=== PATIENT | male | born 1995 | race Caucasian/White ===

== ENCOUNTER 2022-04-24 23:34 | Emergency (ER) | payer MEDICAID ==
[~2022-04-24] VITALS: Ht 170.2 cm; Wt 72.7 kg
[~2022-04-24 23:34] MED LIST: BUSP15TA8 PO; OLAN-1 PO; OLAN20TA3 PO
[2022-04-24 23:36] VITALS: BP 123/83
--- NOTE | 2022-04-25 01:35 | NUR ---
Patient placed on monitoring several times. Patient has removed. At a minimum patient was placed on spo2 monitor sticker. Patient seems to be tolerating this and has allowed this to remain in place.
--- NOTE | 2022-04-25 02:20 | NUR ---
Patient asleep at this time. PAtient spo2 remains greater than 95 percent, HR 70-80s.
[2022-04-25] MEDS ORDERED: ondansetron 4mg rapidly disintigrating tab PO ONE (03:20)
== END 2022-04-25 03:29 | disposition home or self-care (01) ==
LOC: ER 23:35
DX: T40.411A Poisoning by fentanyl or fentanyl analogs, accidental (unintentional), initial encounter (principal); Z72.89 Other problems related to lifestyle; Z60.2 Problems related to living alone; Z59.00 Homelessness unspecified; Z56.0 Unemployment, unspecified; Z79.899 Other long term (current) drug therapy; Y92.89 Other specified places as the place of occurrence of the external cause
CPT/HCPCS: 99283

== ENCOUNTER 2022-10-11 21:01 | Emergency (ER) | payer MEDICAID ==
[~2022-10-11 21:01] MED LIST changes: -BUSP15TA8 PO; +NO HOME MEDS; -OLAN-1 PO; +OLAN10TA3 PO; -OLAN20TA3 PO
[2022-10-12] MEDS ORDERED: OLAN10TA73 PO (19:00)
== END 2022-10-11 23:04 | disposition left against medical advice (07) ==
LOC: ER 21:01
DX: F29 Unspecified psychosis not due to a substance or known physiological condition (principal); Z53.21 Procedure and treatment not carried out due to patient leaving prior to being seen by health care provider

== ENCOUNTER 2022-11-02 21:46 | Emergency (ER) | payer MEDICAID ==
[~2022-11-02] VITALS: Ht 175.3 cm; Wt 140.0 kg
[~2022-11-02 21:46] MED LIST changes: -NO HOME MEDS; -OLAN10TA3 PO; +OLAN10TA73 PO
[2022-11-02 22:05] VITALS: BP 136/85; PULSE 110; RESP 18; TEMP 98; O2SAT 97
== END 2022-11-03 00:04 | disposition left against medical advice (07) ==
LOC: ER 21:47
DX: R61 Generalized hyperhidrosis (principal); Z53.21 Procedure and treatment not carried out due to patient leaving prior to being seen by health care provider
CPT/HCPCS: 99281

== ENCOUNTER 2022-12-02 21:04 | Emergency (ER) | payer MEDICAID ==
[~2022-12-02] VITALS: Ht 170.2 cm; Wt 74.0 kg
[2022-12-02 22:25] VITALS: TEMP 97.4
[2022-12-03 02:10] VITALS: BP 101/65; PULSE 97; RESP 18; O2SAT 98
[2022-12-03] MEDS ORDERED: AMOX-117 PO (02:25)
== END 2022-12-03 02:32 | disposition home or self-care (01) ==
LOC: ER 21:05
DX: K08.89 Other specified disorders of teeth and supporting structures (principal); F20.9 Schizophrenia, unspecified; Z79.899 Other long term (current) drug therapy; F15.10 Other stimulant abuse, uncomplicated; Z59.00 Homelessness unspecified; Z56.0 Unemployment, unspecified
CPT/HCPCS: 99283

== ENCOUNTER 2022-12-31 01:19 | Emergency (ER) | payer MEDICAID ==
[~2022-12-31] VITALS: Ht 170.2 cm; Wt 75.0 kg
[2022-12-31 01:48] VITALS: BP 100/71; PULSE 117; RESP 16; TEMP 98.6; O2SAT 99
[2022-12-31] MEDS ORDERED: AMOX500C2 PO (03:20)
== END 2022-12-31 03:34 | disposition home or self-care (01) ==
LOC: ER 01:20
DX: J02.9 Acute pharyngitis, unspecified (principal); K02.9 Dental caries, unspecified; F15.90 Other stimulant use, unspecified, uncomplicated; Z79.2 Long term (current) use of antibiotics; Z79.899 Other long term (current) drug therapy
CPT/HCPCS: 99283

== ENCOUNTER 2023-03-19 16:31 | Emergency (ER) | payer MEDICAID ==
[~2023-03-19] VITALS: Ht 177.8 cm; Wt 73.0 kg
[2023-03-19] MEDS ORDERED: ondansetron 4mg rapidly disintigrating tab PO ONE (16:40)
[2023-03-19 16:46] VITALS: BP 115/68; PULSE 103; RESP 12; TEMP 97.6; O2SAT 96
== END 2023-03-19 17:01 | disposition left against medical advice (07) ==
LOC: ER 16:31
DX: F11.10 Opioid abuse, uncomplicated (principal); R11.2 Nausea with vomiting, unspecified; F20.9 Schizophrenia, unspecified
CPT/HCPCS: 99283

== ENCOUNTER 2023-03-29 18:49 | Emergency (ER) | payer MEDICAID ==
[~2023-03-29] VITALS: Ht 170.2 cm; Wt 72.7 kg
[2023-03-29 21:28] LABS: BASOPHILS # (AUTO) 0.2 X10'3 (0-0.2); BASOPHILS % (AUTO) 1.5 % (0-1); EOSINOPHILS # (AUTO) 0.1 X10'3 (0-0.9); EOSINOPHILS % (AUTO) 0.8 % (0-6); HEMATOCRIT 40.8 % (42.0-52.0); HEMOGLOBIN 13.3 g/dl (14.0-17.9); LYMPHOCYTES % (AUTO) 8.7 % (21-51); MEAN CORPUSCULAR HGB CONC 32.7 g/dL (33.0-36.5); MEAN CORPUSCULAR VOLUME 88.6 FL (78-98); MEAN PLATELET VOLUME 7.5 FL (7.4-10.4); MONOCYTES # (AUTO) 0.7 X10'3 (0-0.9); NEUTROPHILS # (AUTO) 9.2 X10'3 (1.8-7.7); PLATELET COUNT 278 X10'3 (140-440); RED CELL DISTRIBUTION WIDTH 13.9 % (11.5-14.5)
[2023-03-29 21:43] LABS: ALANINE AMINOTRANSFERASE 24 U/L (12-78); ALBUMIN 3.1 G/DL (3.4-5.0); ALBUMIN/GLOBULIN RATIO 0.7 (1.1-1.5); ALKALINE PHOSPHATASE 61 IU/L (46-116); ANION GAP 7 (8-16); ASPARTATE AMINO TRANSFERASE 18 U/L (10-37); BILIRUBIN,TOTAL 0.3 MG/DL (0.1-1.0); BLOOD UREA NITROGEN 17 MG/DL (7-18); CALCIUM 8.8 MG/DL (8.5-10.1); CHLORIDE 100 MMOL/L (99-107); GLUCOSE 97 MG/DL (70-104); POTASSIUM 3.8 MMOL/L (3.5-5.1); SODIUM 139 MMOL/L (135-145); TOTAL CARBON DIOXIDE 31.7 MMOL/L (24-32); TOTAL PROTEIN 7.4 G/DL (6.4-8.2); eCRCL 104 ML/MIN; eGFR 90 ML/MIN
[2023-03-29 21:50] LABS: ETHANOL < 10 MG/DL (<10); LIPASE 29 U/L (16-77); PRO BRAIN NATRIURETIC PEPTIDE < 30 PG/ML (0-125)
[2023-03-29] MEDS ORDERED: acetaminophen 325mg tablet PO PRN (23:15)
[2023-03-30] MEDS: OLANZapine 5mg rapidly disint. tablet PO SCH ×2 (08:43→21:16)
[2023-03-30 09:34] LABS: BILIRUBIN,URINE NEGATIVE (Neg); CLARITY,URINE SLIGHTLY CLOUDY (Clear); COLOR,URINE YELLOW (Yellow); GLUCOSE, URINE NEGATIVE (Neg); KETONES,URINE NEGATIVE (Neg); LEUKOCYTE ESTERASE ,URINE NEGATIVE (Neg); NITRITES, URINE NEGATIVE (Neg); OCCULT BLOOD,URINE NEGATIVE (Neg); PROTEIN,URINE NEGATIVE (Neg); UROBILINOGEN,URINE 0.2 E.U/dL (0.2-1.0)
[2023-03-30 09:47] LABS: URINE AMPHETAMINE SCREEN POSITIVE (Neg); URINE BARBITUATE SCREEN NEGATIVE (Neg); URINE BENZODIAZEPINES SCREEN NEGATIVE (Neg); URINE CANNABINOID SCREEN NEGATIVE (Neg); URINE COCAINE SCREEN NEGATIVE (Neg); URINE METHADONE SCREEN NEGATIVE (Neg); URINE OPIATE SCREEN POSITIVE (Neg); URINE PHENCYCLIDINE SCREEN NEGATIVE (Neg)
[2023-03-30 09:48] LABS: UA COLLECTION TYPE NON-SPECIFIED
[2023-03-30 09:55] LABS: AMORPHOUS PHOSPHATES 1+; BACTERIA,URINE NONE SEEN /HPF (Neg); RBC,URINE 0-2 /HPF (0-2); SPERM FEW /HPF (NEGATIVE); SQUAMOUS EPITHELIAL CELL,UR NONE SEEN /LPF (FEW); WBC,URINE 0-4 /HPF (0-4)
[2023-03-31 07:47] VITALS: BP 103/69; PULSE 84; RESP 16; O2SAT 95
[2023-03-31 10:19] VITALS: TEMP 98.3
== END 2023-03-31 10:21 | disposition home or self-care (01) ==
LOC: ER 18:50
DX: T40.411A Poisoning by fentanyl or fentanyl analogs, accidental (unintentional), initial encounter (principal); Z59.00 Homelessness unspecified; F15.90 Other stimulant use, unspecified, uncomplicated; F20.9 Schizophrenia, unspecified; Z20.822 Contact with and (suspected) exposure to COVID-19; Y92.89 Other specified places as the place of occurrence of the external cause
CPT/HCPCS: 36415; 71045; 80053; 80305; 80320; 81001; 83690; 83735; 83880; 84484; 85025; 87811; 93005; 99285

== ENCOUNTER 2023-03-31 12:13 | Emergency (ER) | payer MEDICAID | END 2023-03-31 12:25 | disposition left against medical advice (07) | LOC: ER 12:14 | DX: Z00.8 Encounter for other general examination (principal); Z53.21 Procedure and treatment not carried out due to patient leaving prior to being seen by health care provider ==

== ENCOUNTER 2023-04-02 03:39 | Emergency (ER) | payer MEDICAID ==
[~2023-04-02] VITALS: Ht 170.2 cm; Wt 69.0 kg
[2023-04-02 03:40] VITALS: BP 118/62; PULSE 96; RESP 16; TEMP 98.4; O2SAT 98
== END 2023-04-02 04:48 | disposition home or self-care (01) ==
LOC: ER 03:40
DX: F15.10 Other stimulant abuse, uncomplicated (principal); Z00.8 Encounter for other general examination; F20.9 Schizophrenia, unspecified; Z79.899 Other long term (current) drug therapy
CPT/HCPCS: 99281

== ENCOUNTER 2023-04-15 06:39 | Emergency (ER) | payer MEDICAID ==
[~2023-04-15] VITALS: Ht 167.6 cm; Wt 67.5 kg
[2023-04-15 06:45] VITALS: BP 118/70; PULSE 106; RESP 16; TEMP 98.5; O2SAT 98
== END 2023-04-15 07:10 | disposition left against medical advice (07) ==
LOC: ER 06:39
DX: R05.9 Cough, unspecified (principal); Z53.21 Procedure and treatment not carried out due to patient leaving prior to being seen by health care provider
CPT/HCPCS: 99281

== ENCOUNTER 2023-04-17 16:41 | Emergency (ER) | payer MEDICAID ==
[~2023-04-17] VITALS: Ht 170.2 cm; Wt 72.7 kg
[2023-04-17 17:43] LABS: BASOPHILS # (AUTO) 0.1 X10'3 (0-0.2); BASOPHILS % (AUTO) 1.1 % (0-1); EOSINOPHILS # (AUTO) 0.3 X10'3 (0-0.9); EOSINOPHILS % (AUTO) 3.7 % (0-6); HEMATOCRIT 39.6 % (42.0-52.0); HEMOGLOBIN 13.3 g/dl (14.0-17.9); LYMPHOCYTES # (AUTO) 2.3 X10'3 (1.1-4.8); LYMPHOCYTES % (AUTO) 28.7 % (21-51); MEAN CORPUSCULAR HGB CONC 33.7 g/dL (33.0-36.5); MEAN CORPUSCULAR VOLUME 89.1 FL (78-98); MEAN PLATELET VOLUME 7.8 FL (7.4-10.4); MONOCYTES # (AUTO) 0.6 X10'3 (0-0.9); NEUTROPHILS # (AUTO) 4.7 X10'3 (1.8-7.7); NEUTROPHILS % (AUTO) 58.5 % (42-75); PLATELET COUNT 435 X10'3 (140-440); RED BLOOD COUNT 4.44 X10'6 (4.70-6.10); RED CELL DISTRIBUTION WIDTH 13.8 % (11.5-14.5); WHITE BLOOD COUNT 8.1 X10'3 (4.5-11.0)
[2023-04-17 17:51] LABS: ALBUMIN 3.2 G/DL (3.4-5.0); ANION GAP 7 (8-16); BLOOD UREA NITROGEN 28 MG/DL (7-18); BUN/CREATININE RATIO 34.6 (10.0-20.0); CHLORIDE 102 MMOL/L (99-107); CREATININE 0.81 MG/DL (0.60-1.10); ETHANOL < 10 MG/DL (<10); POTASSIUM 4.1 MMOL/L (3.5-5.1); SODIUM 141 MMOL/L (135-145); TOTAL CARBON DIOXIDE 31.8 MMOL/L (24-32); eCRCL 128 ML/MIN; eGFR > 90 ML/MIN
[2023-04-17 17:52] LABS: GLUCOSE 100 MG/DL (70-104)
[2023-04-17 18:17] LABS: URINE AMPHETAMINE SCREEN POSITIVE (Neg); URINE BARBITUATE SCREEN NEGATIVE (Neg); URINE BENZODIAZEPINES SCREEN NEGATIVE (Neg); URINE CANNABINOID SCREEN NEGATIVE (Neg); URINE COCAINE SCREEN NEGATIVE (Neg); URINE METHADONE SCREEN NEGATIVE (Neg); URINE OPIATE SCREEN NEGATIVE (Neg); URINE PHENCYCLIDINE SCREEN NEGATIVE (Neg)
[2023-04-17] MEDS ORDERED: NO HOME MEDS (18:24)
[2023-04-18 05:21] VITALS: BP 114/63; PULSE 97; TEMP 97.9; O2SAT 100
[2023-04-18 08:25] VITALS: RESP 16
== END 2023-04-18 15:17 | disposition home or self-care (01) ==
LOC: ER 16:41
DX: R45.851 Suicidal ideations (principal); Z20.822 Contact with and (suspected) exposure to COVID-19; R06.02 Shortness of breath; F15.90 Other stimulant use, unspecified, uncomplicated; Z79.899 Other long term (current) drug therapy
CPT/HCPCS: 36415; 71045; 80048; 80305; 80320; 85025; 87502; 87503; 87811; 99284

== ENCOUNTER 2023-04-20 12:51 | Emergency (ER) | payer MEDICAID ==
[~2023-04-20] VITALS: Ht 167.6 cm; Wt 56.8 kg
[~2023-04-20 12:51] MED LIST changes: +NO HOME MEDS; -OLAN10TA73 PO
== END 2023-04-20 13:18 | disposition left against medical advice (07) ==
LOC: ER 12:52
DX: Z76.5 Malingerer [conscious simulation] (principal); F15.90 Other stimulant use, unspecified, uncomplicated
CPT/HCPCS: 99283

== ENCOUNTER 2023-05-04 03:21 | Emergency (ER) | payer MEDICAID ==
[~2023-05-04] VITALS: Ht 177.8 cm; Wt 72.7 kg
[2023-05-04] MEDS: normal saline 1000ml 1,000 ML IV ONE (03:44)
[2023-05-04] MEDS: diphenhydrAMINE 50 mg/ml inj IV ONE (03:44)
[2023-05-04 03:50] LABS: BASOPHILS % (AUTO) 0.3 % (0-1); HEMOGLOBIN 13.2 g/dl (14.0-17.9)
[2023-05-04 03:51] LABS: EOSINOPHILS % (AUTO) 0.3 % (0-6); HEMATOCRIT 39.5 % (42.0-52.0); LYMPHOCYTES # (AUTO) 2.2 X10'3 (1.1-4.8); MEAN CORPUSCULAR HEMOGLOBIN 29.9 PG (27.0-31.0); MEAN CORPUSCULAR HGB CONC 33.4 g/dL (33.0-36.5); MEAN CORPUSCULAR VOLUME 89.6 FL (78-98); MEAN PLATELET VOLUME 7.8 FL (7.4-10.4); MONOCYTES # (AUTO) 0.9 X10'3 (0-0.9); MONOCYTES % (AUTO) 10.4 % (2-12); NEUTROPHILS # (AUTO) 5.1 X10'3 (1.8-7.7); PLATELET COUNT 309 X10'3 (140-440); RED BLOOD COUNT 4.41 X10'6 (4.70-6.10); RED CELL DISTRIBUTION WIDTH 14.2 % (11.5-14.5); WHITE BLOOD COUNT 8.3 X10'3 (4.5-11.0)
[2023-05-04 04:05] LABS: ALBUMIN 3.7 G/DL (3.4-5.0); ANION GAP 3 (8-16); BLOOD UREA NITROGEN 27 MG/DL (7-18); BUN/CREATININE RATIO 21.8 (10.0-20.0); CALCIUM 8.3 MG/DL (8.5-10.1); CHLORIDE 104 MMOL/L (99-107); CREATININE 1.24 MG/DL (0.60-1.10); GLUCOSE 167 MG/DL (70-104); SODIUM 142 MMOL/L (135-145); TOTAL CARBON DIOXIDE 34.7 MMOL/L (24-32); eCRCL 92 ML/MIN; eGFR 70 ML/MIN
[2023-05-04 04:06] LABS: POTASSIUM 3.8 MMOL/L (3.5-5.1)
[2023-05-04] MEDS: haloperidol lactate 5mg/ml inj IM ONE (04:06)
[2023-05-04 04:07] LABS: ETHANOL < 10 MG/DL (<10)
[2023-05-04 06:27] VITALS: BP 107/59; PULSE 84; RESP 12; TEMP 98; O2SAT 100
== END 2023-05-04 07:15 | disposition home or self-care (01) ==
LOC: ER 03:22
DX: T40.411A Poisoning by fentanyl or fentanyl analogs, accidental (unintentional), initial encounter (principal); R40.2A Nontraumatic coma due to underlying condition; F20.9 Schizophrenia, unspecified; Y92.89 Other specified places as the place of occurrence of the external cause
CPT/HCPCS: 71045; 80048; 80320; 84484; 85025; 93005; 96361; 96372; 96374; 99285; J1200; J1630; J7030

== ENCOUNTER 2023-05-04 08:33 | Emergency (ER) | payer MEDICAID ==
[2023-05-04 08:42] VITALS: BP 108/70; PULSE 64; RESP 18; O2SAT 100
[2023-05-04] MEDS: naloxone 2mg/2ml inj IV STA (09:09)
[2023-05-04] MEDS: normal saline 1000ml 1,000 ML IV ONE (09:09)
[2023-05-04 10:04] LABS: BASOPHILS # (AUTO) 0.1 X10'3 (0-0.2); BASOPHILS % (AUTO) 0.9 % (0-1); EOSINOPHILS % (AUTO) 0.2 % (0-6); HEMATOCRIT 35.6 % (42.0-52.0); HEMOGLOBIN 11.8 g/dl (14.0-17.9); LYMPHOCYTES % (AUTO) 25.1 % (21-51); MEAN CORPUSCULAR HEMOGLOBIN 29.7 PG (27.0-31.0); MEAN CORPUSCULAR HGB CONC 33.1 g/dL (33.0-36.5); MEAN CORPUSCULAR VOLUME 89.8 FL (78-98); MEAN PLATELET VOLUME 7.4 FL (7.4-10.4); MONOCYTES % (AUTO) 12.2 % (2-12); NEUTROPHILS # (AUTO) 4.8 X10'3 (1.8-7.7); NEUTROPHILS % (AUTO) 61.6 % (42-75); PLATELET COUNT 249 X10'3 (140-440); RED BLOOD COUNT 3.96 X10'6 (4.70-6.10); RED CELL DISTRIBUTION WIDTH 14.1 % (11.5-14.5); WHITE BLOOD COUNT 7.9 X10'3 (4.5-11.0)
[2023-05-04 10:19] LABS: ANION GAP 7 (8-16); BLOOD UREA NITROGEN 22 MG/DL (7-18); BUN/CREATININE RATIO 24.4 (10.0-20.0); CHLORIDE 108 MMOL/L (99-107); GLUCOSE 83 MG/DL (70-104); POTASSIUM 4.1 MMOL/L (3.5-5.1); SODIUM 142 MMOL/L (135-145); TOTAL CARBON DIOXIDE 27.1 MMOL/L (24-32); eGFR > 90 ML/MIN
[2023-05-04 11:04] LABS: ETHANOL < 10 MG/DL (<10)
== END 2023-05-04 11:02 | disposition home or self-care (01) ==
LOC: ER 08:33
DX: F15.10 Other stimulant abuse, uncomplicated (principal); F32.A Depression, unspecified; F20.9 Schizophrenia, unspecified; F11.10 Opioid abuse, uncomplicated; Z79.899 Other long term (current) drug therapy; Z59.00 Homelessness unspecified; Z56.0 Unemployment, unspecified
CPT/HCPCS: 36415; 80048; 80320; 85025; 96361; 96374; 99283; J2310; J7030

== ENCOUNTER 2023-06-25 11:24 | Emergency (ER) | payer MEDICAID ==
[~2023-06-25] VITALS: Ht 170.2 cm; Wt 86.0 kg
[2023-06-25 11:30] VITALS: TEMP 97.5
[2023-06-25 12:22] LABS: ALBUMIN 3.3 G/DL (3.4-5.0); ANION GAP 8 (8-16); BLOOD UREA NITROGEN 17 MG/DL (7-18); BUN/CREATININE RATIO 18.3 (10.0-20.0); CALCIUM 8.2 MG/DL (8.5-10.1); CHLORIDE 103 MMOL/L (99-107); CREATININE 0.93 MG/DL (0.60-1.10); GLUCOSE 201 MG/DL (70-104); POTASSIUM 3.3 MMOL/L (3.5-5.1); PRO BRAIN NATRIURETIC PEPTIDE 33 PG/ML (0-125); SODIUM 138 MMOL/L (135-145); TOTAL CARBON DIOXIDE 26.7 MMOL/L (24-32); eCRCL 112 ML/MIN; eGFR > 90 ML/MIN
[2023-06-25 12:26] LABS: BASOPHILS # (AUTO) 0.1 X10'3 (0-0.2); BASOPHILS % (AUTO) 0.9 % (0-1); EOSINOPHILS # (AUTO) 0.1 X10'3 (0-0.9); EOSINOPHILS % (AUTO) 1.6 % (0-6); HEMATOCRIT 42.5 % (42.0-52.0); HEMOGLOBIN 13.8 g/dl (14.0-17.9); LYMPHOCYTES # (AUTO) 2.4 X10'3 (1.1-4.8); LYMPHOCYTES % (AUTO) 34.2 % (21-51); MEAN CORPUSCULAR HEMOGLOBIN 29.1 PG (27.0-31.0); MEAN CORPUSCULAR HGB CONC 32.5 g/dL (33.0-36.5); MEAN CORPUSCULAR VOLUME 89.6 FL (78-98); MEAN PLATELET VOLUME 7.9 FL (7.4-10.4); MONOCYTES # (AUTO) 0.5 X10'3 (0-0.9); MONOCYTES % (AUTO) 6.4 % (2-12); NEUTROPHILS # (AUTO) 4.1 X10'3 (1.8-7.7); NEUTROPHILS % (AUTO) 56.9 % (42-75); PLATELET COUNT 302 X10'3 (140-440); RED BLOOD COUNT 4.74 X10'6 (4.70-6.10); RED CELL DISTRIBUTION WIDTH 13.8 % (11.5-14.5); WHITE BLOOD COUNT 7.1 X10'3 (4.5-11.0)
[2023-06-25 14:47] LABS: URINE AMPHETAMINE SCREEN NEGATIVE (Neg); URINE BARBITUATE SCREEN NEGATIVE (Neg); URINE BENZODIAZEPINES SCREEN NEGATIVE (Neg); URINE CANNABINOID SCREEN POSITIVE (Neg); URINE COCAINE SCREEN NEGATIVE (Neg); URINE METHADONE SCREEN NEGATIVE (Neg); URINE OPIATE SCREEN NEGATIVE (Neg); URINE PHENCYCLIDINE SCREEN NEGATIVE (Neg)
[2023-06-25 15:32] VITALS: BP 103/73; PULSE 77; RESP 18; O2SAT 99
== END 2023-06-25 15:37 | disposition home or self-care (01) ==
LOC: ER 11:25
DX: T40.412A Poisoning by fentanyl or fentanyl analogs, intentional self-harm, initial encounter (principal); F32.A Depression, unspecified; F20.9 Schizophrenia, unspecified; F15.90 Other stimulant use, unspecified, uncomplicated; F11.90 Opioid use, unspecified, uncomplicated; Z20.822 Contact with and (suspected) exposure to COVID-19; Z56.0 Unemployment, unspecified; Z59.00 Homelessness unspecified; Y92.89 Other specified places as the place of occurrence of the external cause
CPT/HCPCS: 36415; 71045; 80048; 80305; 80320; 83880; 84484; 85025; 87811; 93005; 99285; C1758